=== PATIENT | female | born 1955 | race African-American/Black ===

== ENCOUNTER 2018-03-06 15:16 | Inpatient (IN) | payer MEDICAID ==
[~2018-03-06] VITALS: Ht 167.6 cm; Wt 112.8 kg
[~2018-03-06 15:16] MED LIST: ALBU8.5H8 INH; AMLO5TAB2 PO; CARI350T14 PO; DABI150C PO; DIAZ10TA4 PO; FLUT16SP2 INH; FURO40TA6 PO; HYDR-3237 PO; INSU100C5 SC; INSU100V8 SQ; METF100010 PO; OXYC-307 PO; PHEN37.53 PO; POTA10TA31 PO; RANI150T4 PO; VALS320T2 PO
[2018-03-06] MEDS ORDERED: ASPIRIN 81 MG TABLET CHEW ONE (16:08)
[2018-03-06] MEDS ORDERED: NITROGLYCERIN OINT 2%, 1GM TP ONE ×2 (16:08→16:30)
[2018-03-06 16:30] LABS: ALBUMIN 3.3 g/dL (3.4-5.0); ANION GAP 5 mmol/L (5-15); CALCIUM 8.9 mg/dL (8.5-10.1); CHLORIDE 112 mmol/L (98-107); CREATININE 0.97 mg/dL (0.55-1.02)
[2018-03-06] MEDS ORDERED: ASPIRIN 81 MG TABLET CHEW PO ONE (16:30)
[2018-03-06] MEDS ORDERED: SODIUM CHLORIDE FLUSH 10ML SYR IVF ONE (16:30)
[2018-03-06 16:33] LABS: INTERNATIONAL NORMALIZED RATIO 1.1 (0.93-1.1); PROTHROMBIN TIME 11.4 Seconds (9.6-11.5)
[2018-03-06 16:34] LABS: TROPONIN I < 0.015 ng/mL (0.000-0.045)
[2018-03-06 16:40] LABS: BASOPHILS # (AUTO) 0.04 x10^3/uL (0-0.1); BASOPHILS % (AUTO) 1 % (0-1); EOSINOPHILS # (AUTO) 0.11 x10^3/uL (0-0.4); EOSINOPHILS % (AUTO) 2 % (1-7); LYMPHOCYTES # (AUTO) 1.54 x10^3/uL (1-3.4); LYMPHOCYTES % (AUTO) 26 % (22-44); MD NO; MEAN CORPUSCULAR HEMOGLOBIN 25.8 pg (27.0-34.8); MEAN CORPUSCULAR HGB CONC 32.2 g/dL (32.4-35.8); MEAN CORPUSCULAR VOLUME 80.2 fL (80-100); MEAN PLATELET VOLUME 9.9 fL (7.4-10.4); MONOCYTES % (AUTO) 7 % (2-9); NEUTROPHILS # (AUTO) 3.82 x10^3/uL (1.8-6.8); NEUTROPHILS % (AUTO) 65 % (42-75); PLATELET COUNT 252 x10^3/uL (130-400); RED CELL DISTRIBUTION WIDTH 16.6 % (9.6-15.2)
[2018-03-06] MEDS ORDERED: VALS320T2 PO (18:18)
[2018-03-06] MEDS ORDERED: DIGO125T PO (18:18)
[2018-03-06] MEDS ORDERED: CARV6.252 PO (18:18)
[2018-03-06] MEDS ORDERED: OXYB10TA PO (18:22)
[2018-03-06] MEDS ORDERED: HYDR25TA11 PO (18:22)
[2018-03-06] MEDS ORDERED: SIMV10TA3 PO (18:25)
[2018-03-06] MEDS ORDERED: TIZA4CAP PO (18:25)
[2018-03-06] MEDS ORDERED: ZOLP5TAB6 PO (18:25)
[2018-03-06] MEDS ORDERED: TIZANIDINE 2MG TABLET PO PRN (19:00)
[2018-03-06] MEDS ORDERED: ALBUTEROL SULFATE INH PRN (19:00)
[2018-03-06] MEDS ORDERED: POLYETHYLENE GLYCOL 17 GM PACKET PO PRN (19:30)
[2018-03-06] MEDS ORDERED: ACETAMINOPHEN 325 MG TABLET PO PRN (19:30)
[2018-03-06] MEDS ORDERED: ONDANSETRON 2MG/ML, 2ML IVPush PRN (19:30)
[2018-03-06] MEDS ORDERED: BISACODYL 10 MG SUPP PR PRN (19:30)
[2018-03-06] MEDS ORDERED: morphine SULFATE 10 MG/ML, 1ML IVPush PRN (19:30)
[2018-03-06] MEDS ORDERED: NITROGLYCERIN 0.4 MG BOTTLE (25 TABS) SL PRN (19:30)
[2018-03-06 20:10] LABS: HEMOGLOBIN A1C 6.7 % (4.2-6.3)
[2018-03-06 20:16] VITALS: BP 171/89
[2018-03-06] MEDS: SODIUM CHLORIDE FLUSH 10ML SYR IVF SCH (20:37)
[2018-03-06] MEDS: CARISOPRODOL 350 MG TABLET PO SCH (20:38)
[2018-03-06] MEDS ORDERED: SIMVASTATIN 5 MG TABLET ONE (22:06)
[2018-03-06] MEDS: metFORMIN XR 500 MG TAB.ER.24H PO SCH (22:13)
[2018-03-06] MEDS: DABIGATRAN 150 MG CAPSULE PO SCH (22:14)
[2018-03-06] MEDS: CARVEDILOL 6.25 MG TABLET PO SCH (22:14)
[2018-03-06] MEDS: SIMVASTATIN 10 MG TABLET PO SCH (22:15)
[2018-03-06] MEDS: INSULIN GLARGINE 100 UNITS/ML, PEN SQ-INSULIN SCH (22:20)
[2018-03-06] MEDS: INSULIN LISPRO 100 UNITS/ML, PEN SQ-INSULIN SCH (22:20)
[2018-03-06 22:38] LABS: TROPONIN I < 0.015 ng/mL (0.000-0.045)
[2018-03-07 00:06] VITALS: BP 142/84
[2018-03-07] MEDS: ZOLPIDEM 5MG TABLET PO PRN ×2 (00:22→22:34)
[2018-03-07 04:30] LABS: ALBUMIN 2.8 g/dL (3.4-5.0); ANION GAP 9 mmol/L (5-15); CALCIUM 8.6 mg/dL (8.5-10.1); CHLORIDE 113 mmol/L (98-107)
[2018-03-07 04:34] LABS: BASOPHILS # (AUTO) 0.03 x10^3/uL (0-0.1); BASOPHILS % (AUTO) 0 % (0-1); EOSINOPHILS # (AUTO) 0.13 x10^3/uL (0-0.4); EOSINOPHILS % (AUTO) 2 % (1-7); LYMPHOCYTES # (AUTO) 2.57 x10^3/uL (1-3.4); LYMPHOCYTES % (AUTO) 39 % (22-44); MD NO; MEAN CORPUSCULAR HEMOGLOBIN 25.3 pg (27.0-34.8); MEAN CORPUSCULAR HGB CONC 31.6 g/dL (32.4-35.8); MEAN CORPUSCULAR VOLUME 79.9 fL (80-100); MEAN PLATELET VOLUME 9.9 fL (7.4-10.4); MONOCYTES # (AUTO) 0.46 x10^3/uL (0.2-0.8); MONOCYTES % (AUTO) 7 % (2-9); NEUTROPHILS # (AUTO) 3.45 x10^3/uL (1.8-6.8); NEUTROPHILS % (AUTO) 52 % (42-75); PLATELET COUNT 231 x10^3/uL (130-400); RED BLOOD COUNT 4.67 x10^6/uL (3.82-5.3); RED CELL DISTRIBUTION WIDTH 16.6 % (9.6-15.2)
[2018-03-07 04:36] LABS: CREATININE 0.98 mg/dL (0.55-1.02)
[2018-03-07 04:37] LABS: ALANINE AMINOTRANSFERASE 16 U/L (12-78); ALKALINE PHOSPHATASE 73 U/L (45-117); BILIRUBIN,TOTAL 0.5 mg/dL (0.2-1.0); TOTAL PROTEIN 6.4 g/dL (6.4-8.2); TROPONIN I < 0.015 ng/mL (0.000-0.045)
[2018-03-07] MEDS: INSULIN LISPRO 100 UNITS/ML, PEN SQ-INSULIN SCH ×4 (07:00→20:31)
[2018-03-07 08:15] VITALS: BP 166/83
[2018-03-07] MEDS: SODIUM CHLORIDE FLUSH 10ML SYR IVF SCH ×2 (08:16→20:22)
[2018-03-07] MEDS: metFORMIN XR 500 MG TAB.ER.24H PO SCH ×2 (08:17→20:22)
[2018-03-07] MEDS: FUROSEMIDE 40 MG TABLET PO SCH (08:17)
[2018-03-07] MEDS: DABIGATRAN 150 MG CAPSULE PO SCH ×2 (08:18→20:22)
[2018-03-07] MEDS: SENNA/DOCUSATE TABLET PO SCH (08:18)
[2018-03-07] MEDS: CARISOPRODOL 350 MG TABLET PO SCH (08:19)
[2018-03-07] MEDS: AMLODIPINE 5 MG TABLET PO SCH (08:19)
[2018-03-07] MEDS: DIGOXIN 0.125 MG TABLET PO SCH ×2 (08:20→09:00)
[2018-03-07] MEDS: FAMOTIDINE 20 MG TABLET PO SCH ×2 (08:21→20:20)
[2018-03-07] MEDS: OXYBUTYNIN CHLORIDE 5 MG TABLET PO SCH (08:22)
[2018-03-07] MEDS: FLUTICASONE NASAL SPRAY 16GM NAS SCH (08:23)
[2018-03-07] MEDS: CARVEDILOL 6.25 MG TABLET PO SCH (08:23)
[2018-03-07] MEDS: VALSARTAN 320 MG TABLET PO SCH (08:23)
[2018-03-07] MEDS: INSULIN GLARGINE 100 UNITS/ML, PEN SQ-INSULIN SCH ×3 (08:30→20:35)
[2018-03-07] MEDS ORDERED: REGADENOSON 0.4 MG/5 ML SYRINGE ONE (09:08)
[2018-03-07] MEDS ORDERED: METHOCARBAMOL 750 MG TABLET PO PRN (12:30)
[2018-03-07 14:29] LABS: CHOL/HDL RATIO 2.5
[2018-03-07 14:54] VITALS: BP 120/67
[2018-03-07] MEDS ORDERED: DOCUSATE 100 MG CAPSULE PO PRN (15:30)
[2018-03-07] MEDS: FERROUS SULFATE 325 MG TABLET PO SCH (17:14)
[2018-03-07 19:26] VITALS: BP 173/80
[2018-03-07] MEDS ORDERED: SIMVASTATIN 5 MG TABLET ONE (19:48)
[2018-03-07] MEDS: SIMVASTATIN 10 MG TABLET PO SCH (20:21)
[2018-03-07] MEDS: CARVEDILOL 3.125 MG TABLET PO SCH (20:22)
[2018-03-08 00:32] VITALS: BP 160/109
[2018-03-08 00:33] VITALS: BP 151/91
[2018-03-08] MEDS: INSULIN LISPRO 100 UNITS/ML, PEN SQ-INSULIN SCH ×4 (07:00→21:00)
[2018-03-08 07:25] VITALS: BP 137/64
[2018-03-08] MEDS: OXYBUTYNIN CHLORIDE 5 MG TABLET PO SCH (09:00)
[2018-03-08] MEDS: SENNA/DOCUSATE TABLET PO SCH (09:00)
[2018-03-08] MEDS: FLUTICASONE NASAL SPRAY 16GM NAS SCH (09:00)
[2018-03-08] MEDS: ASCORBIC ACID 500 MG TABLET PO SCH (09:10)
[2018-03-08] MEDS: metFORMIN XR 500 MG TAB.ER.24H PO SCH ×2 (09:10→21:54)
[2018-03-08] MEDS: AMLODIPINE 5 MG TABLET PO SCH (09:11)
[2018-03-08] MEDS: FUROSEMIDE 40 MG TABLET PO SCH (09:11)
[2018-03-08] MEDS: DABIGATRAN 150 MG CAPSULE PO SCH ×2 (09:11→21:52)
[2018-03-08] MEDS: FAMOTIDINE 20 MG TABLET PO SCH ×2 (09:11→21:00)
[2018-03-08] MEDS: CARVEDILOL 3.125 MG TABLET PO SCH ×2 (09:12→21:54)
[2018-03-08] MEDS: FERROUS SULFATE 325 MG TABLET PO SCH ×3 (09:12→16:49)
[2018-03-08] MEDS: VALSARTAN 320 MG TABLET PO SCH (09:12)
[2018-03-08] MEDS: SODIUM CHLORIDE FLUSH 10ML SYR IVF SCH ×2 (09:13→21:00)
[2018-03-08 09:42] LABS: ANION GAP 7 mmol/L (5-15); CALCIUM 9.1 mg/dL (8.5-10.1); CHLORIDE 107 mmol/L (98-107); CREATININE 1.01 mg/dL (0.55-1.02)
[2018-03-08] MEDS: INSULIN GLARGINE 100 UNITS/ML, PEN SQ-INSULIN SCH ×3 (09:48→23:50)
[2018-03-08 11:00] LABS: BASOPHILS # (AUTO) 0.03 x10^3/uL (0-0.1); BASOPHILS % (AUTO) 0 % (0-1); EOSINOPHILS # (AUTO) 0.13 x10^3/uL (0-0.4); EOSINOPHILS % (AUTO) 2 % (1-7); LYMPHOCYTES # (AUTO) 2.28 x10^3/uL (1-3.4); LYMPHOCYTES % (AUTO) 33 % (22-44); MD NO; MEAN CORPUSCULAR HEMOGLOBIN 26.1 pg (27.0-34.8); MEAN CORPUSCULAR HGB CONC 32.4 g/dL (32.4-35.8); MEAN CORPUSCULAR VOLUME 80.7 fL (80-100); MEAN PLATELET VOLUME 10.2 fL (7.4-10.4); MONOCYTES % (AUTO) 6 % (2-9); NEUTROPHILS # (AUTO) 3.99 x10^3/uL (1.8-6.8); NEUTROPHILS % (AUTO) 58 % (42-75); PLATELET COUNT 280 x10^3/uL (130-400); RED BLOOD COUNT 5.33 x10^6/uL (3.82-5.3); RED CELL DISTRIBUTION WIDTH 16.7 % (9.6-15.2)
[2018-03-08 13:26] VITALS: BP 163/99
[2018-03-08] MEDS ORDERED: CALCIUM CARBONATE 500 MG TAB.CHEW PO PRN (14:00)
[2018-03-08] MEDS ORDERED: MAALOX/HYOSCYAMINE/LIDOCAINE 45 ML BTL PO PRN (15:30)
[2018-03-08 16:56] VITALS: BP 131/85
[2018-03-08 20:02] VITALS: BP 160/99
[2018-03-08] MEDS ORDERED: SIMVASTATIN 5 MG TABLET ONE (21:45)
[2018-03-08] MEDS: SIMVASTATIN 10 MG TABLET PO SCH (21:54)
[2018-03-08] MEDS: ZOLPIDEM 5MG TABLET PO PRN (23:48)
[2018-03-09 00:02] VITALS: BP 146/83
[2018-03-09] MEDS: INSULIN LISPRO 100 UNITS/ML, PEN SQ-INSULIN SCH ×2 (07:00→11:00)
[2018-03-09 07:58] VITALS: BP 131/76
[2018-03-09] MEDS: FERROUS SULFATE 325 MG TABLET PO SCH ×2 (08:00→12:00)
[2018-03-09] MEDS: AMLODIPINE 5 MG TABLET PO SCH (09:00)
[2018-03-09] MEDS: ASCORBIC ACID 500 MG TABLET PO SCH (09:00)
[2018-03-09] MEDS: OXYBUTYNIN CHLORIDE 5 MG TABLET PO SCH (09:00)
[2018-03-09] MEDS: FUROSEMIDE 40 MG TABLET PO SCH (09:00)
[2018-03-09] MEDS: FAMOTIDINE 20 MG TABLET PO SCH (09:00)
[2018-03-09] MEDS: SENNA/DOCUSATE TABLET PO SCH (09:00)
[2018-03-09] MEDS: FLUTICASONE NASAL SPRAY 16GM NAS SCH (09:00)
[2018-03-09] MEDS: SODIUM CHLORIDE FLUSH 10ML SYR IVF SCH (09:00)
[2018-03-09] MEDS: CARVEDILOL 3.125 MG TABLET PO SCH (09:54)
[2018-03-09] MEDS: VALSARTAN 320 MG TABLET PO SCH (09:55)
[2018-03-09] MEDS: metFORMIN XR 500 MG TAB.ER.24H PO SCH (09:57)
[2018-03-09] MEDS: DABIGATRAN 150 MG CAPSULE PO SCH (09:58)
[2018-03-09] MEDS: INSULIN GLARGINE 100 UNITS/ML, PEN SQ-INSULIN SCH (10:00)
[2018-03-09] MEDS ORDERED: ASCO500T6 PO (11:55)
[2018-03-09] MEDS ORDERED: FERR-51 PO (11:55)
[2018-03-09] MEDS ORDERED: CARV3.1212 PO (11:55)
[2018-03-09 13:45] VITALS: BP 153/78
== END 2018-03-09 15:10 | disposition home or self-care (01) | DRG 392 ==
LOC: ED 19:00 → 5SO 19:04 → DCLOUNGE 03-09 14:50
PROVIDERS: ADMIT Internal Medicine; ATTEND Internal Medicine
DX: K21.9 Gastro-esophageal reflux disease without esophagitis (principal); D68.69 Other thrombophilia; E44.0 Moderate protein-calorie malnutrition; E87.0 Hyperosmolality and hypernatremia; Z68.41 Body mass index [BMI] 40.0-44.9, adult; I35.2 Nonrheumatic aortic (valve) stenosis with insufficiency; I48.2 Chronic atrial fibrillation; R55 Syncope and collapse; I50.9 Heart failure, unspecified; I11.0 Hypertensive heart disease with heart failure; E11.9 Type 2 diabetes mellitus without complications; E61.1 Iron deficiency; R71.8 Other abnormality of red blood cells; E66.01 Morbid (severe) obesity due to excess calories; E78.5 Hyperlipidemia, unspecified; E78.00 Pure hypercholesterolemia, unspecified; Z96.653 Presence of artificial knee joint, bilateral; R00.1 Bradycardia, unspecified; F12.90 Cannabis use, unspecified, uncomplicated; Z86.73 Personal history of transient ischemic attack (TIA), and cerebral infarction without residual deficits; Z79.4 Long term (current) use of insulin; Z79.01 Long term (current) use of anticoagulants; Z79.02 Long term (current) use of antithrombotics/antiplatelets; Z86.74 Personal history of sudden cardiac arrest; Z87.891 Personal history of nicotine dependence; Z90.01 Acquired absence of eye
CPT/HCPCS: 36415; 71045; 78452; 80048; 80053; 80061; 80162; 82040; 82728; 82962; 83036; 83540; 83550; 84443; 84466; 84484; 85025; 85610; 85730; 93005; 93017; 93306; 99285; J2785; A9502; C9898; J1815

== ENCOUNTER 2018-08-17 02:15 | Emergency (ER) | payer MEDICAID ==
[~2018-08-17] VITALS: Ht 167.6 cm; Wt 113.0 kg
[~2018-08-17 02:15] MED LIST changes: +AMLO-150 PO; -AMLO5TAB2 PO; +ASCO500T6 PO; +CARV3.1212 PO; +CARV6.252 PO; +DIGO125T PO; +FERR-51 PO; +HYDR25TA11 PO; +OXYB10TA PO; +SIMV10TA3 PO; +TIZA4CAP PO; +ZOLP5TAB6 PO
[2018-08-17] MEDS ORDERED: ONDANSETRON 2MG/ML, 2ML IVPush ONE (03:00)
[2018-08-17] MEDS ORDERED: MORPHINE SULFATE 4 MG/ML, 1ML IVPush PRN (03:00)
[2018-08-17 03:03] LABS: BASOPHILS # (AUTO) 0.03 x10^3/uL (0-0.1); BASOPHILS % (AUTO) 0 % (0-1); EOSINOPHILS # (AUTO) 0.13 x10^3/uL (0-0.4); EOSINOPHILS % (AUTO) 2 % (1-7); LYMPHOCYTES # (AUTO) 1.71 x10^3/uL (1-3.4); LYMPHOCYTES % (AUTO) 21 % (22-44); MD NO; MEAN CORPUSCULAR HEMOGLOBIN 26.1 pg (27.0-34.8); MEAN CORPUSCULAR HGB CONC 32.2 g/dL (32.4-35.8); MEAN CORPUSCULAR VOLUME 81.1 fL (80-100); MEAN PLATELET VOLUME 9.8 fL (7.4-10.4); MONOCYTES # (AUTO) 0.54 x10^3/uL (0.2-0.8); MONOCYTES % (AUTO) 7 % (2-9); NEUTROPHILS # (AUTO) 5.87 x10^3/uL (1.8-6.8); NEUTROPHILS % (AUTO) 71 % (42-75); PLATELET COUNT 297 x10^3/uL (130-400); RED BLOOD COUNT 4.98 x10^6/uL (3.82-5.3); RED CELL DISTRIBUTION WIDTH 16.6 % (9.6-15.2)
[2018-08-17 03:04] LABS: ALANINE AMINOTRANSFERASE 18 U/L (12-78); ALBUMIN 3.3 g/dL (3.4-5.0); ANION GAP 6 mmol/L (5-15); CALCIUM 9.5 mg/dL (8.5-10.1); CHLORIDE 105 mmol/L (98-107); CREATININE 1.14 mg/dL (0.55-1.02)
[2018-08-17 03:09] LABS: ALKALINE PHOSPHATASE 86 U/L (45-117); BILIRUBIN,TOTAL 0.4 mg/dL (0.2-1.0); TROPONIN I < 0.015 ng/mL (0.000-0.045)
[2018-08-17] MEDS ORDERED: OMNIPAQUE 350 MG/ML, 100ML BOTTLE ONE (03:26)
[2018-08-17 03:50] LABS: MICROSCOPIC NOT IND
[2018-08-17 03:52] LABS: CULTURE INDICATED? NO
[2018-08-17] MEDS ORDERED: MAALOX/HYOSCYAMINE/LIDOCAINE 45 ML BTL ONE (04:52)
[2018-08-17] MEDS ORDERED: ONDANSETRON ODT 4 MG PO ONE (05:00)
[2018-08-17] MEDS ORDERED: MAALOX/HYOSCYAMINE/LIDOCAINE 45 ML BTL PO ONE (05:00)
[2018-08-17 06:32] VITALS: BP 162/89
== END 2018-08-17 08:00 | disposition home or self-care (01) ==
LOC: ED 03:53
DX: A09 Infectious gastroenteritis and colitis, unspecified (principal); I10 Essential (primary) hypertension; E11.9 Type 2 diabetes mellitus without complications; I48.91 Unspecified atrial fibrillation; Z87.891 Personal history of nicotine dependence; Z88.0 Allergy status to penicillin
CPT/HCPCS: 36415; 71045; 74177; 80053; 81003; 83690; 84484; 85025; 93005; 99284; Q9967